=== PATIENT | female | born 1995 | race Caucasian/White ===

== ENCOUNTER 2017-07-09 19:11 | Emergency (ER) | payer SELFPAY ==
[2017-07-09 19:19] VITALS: BP 101/65
[2017-07-09] MEDS ORDERED: Naproxen TAB* 250 MG PO ONE (19:30)
[2017-07-09] MEDS ORDERED: Mupirocin 2% OINT* TUBE TOPICAL ONE (19:30)
[2017-07-09] MEDS ORDERED: HYDROcodone/ACETAMIN 5-325 MG* 1 TAB PO ONE (19:30)
--- NOTE | 2017-07-09 19:43 | UC ---
HPI BURN - HPI Summary HPI Summary: While working in kitchen [place] splashed hot oil onto L arm and L leg. Pt applied egg yolk, hemorrhoid cream to cohn. - History of Current Complaint Chief Complaint: UCBurn Stated Complaint: BURNED,HOT OIL,ARM,LEG Time Seen by Provider: 07/09/17 19:19 Hx Obtained From: Patient Hx Last Menstrual Period: 06/24/17 Occurred: Minutes Ago Length of Exposure: Seconds Onset Severity: Moderate Current Severity: Moderate Location: LUE, LLE Character: Direct Thermal Contact, Blisters: Intact Alleviating: Cool Soaks Associated Signs & Symptoms: Positive: Negative Occupational Injury: Yes - Allergy/Home Medications Allergies/Adverse Reactions: Allergies Allergy/AdvReac Type Severity Reaction Status Date / Time No Known Allergies Allergy Verified 07/09/17 19:19 PMH/Surg Hx/FS Hx/Imm Hx Previously Healthy: Yes - Surgical History Surgery Procedure, Year, and Place: Tonsils, [place] teeth - Family History Known Family History: Positive: Hypertension - Social History Occupation: Employed Full-time Alcohol Use: Occasionally Substance Use Type: None Smoking Status (MU): Never Smoked Tobacco Review of Systems Constitutional: Negative Skin: Other - cohn to L arm and L leg Eyes: Negative ENT: Negative Respiratory: Negative Cardiovascular: Negative Gastrointestinal: Negative Genitourinary: Negative Motor: Negative Neurovascular: Negative Musculoskeletal: Negative Neurological: Negative Psychological: Negative All Other Systems Reviewed And Are Negative: Yes Physical Exam Triage Information Reviewed: Yes Appearance: Well-Appearing, No Pain Distress, Well-Nourished Vital Signs: Initial Vital Signs Temp 97.8 F 07/09/17 19:15 Pulse 74 07/09/17 19:15 Resp 16 07/09/17 19:15 BP 101/65 07/09/17 19:15 Pulse Ox 100 07/09/17 19:15 Vital Signs Reviewed: Yes Eye Exam: Normal, Other - PERRL Eyes: Positive: Conjunctiva Clear ENT Exam: Normal ENT: Positive: Normal ENT inspection, Hearing grossly normal, Pharynx normal, TMs normal Neck exam: Normal Respiratory Exam: Normal Respiratory: Positive: Chest non-tender, Lungs clear, Normal breath sounds, No respiratory distress, No accessory muscle use Cardiovascular Exam: Normal Cardiovascular: Positive: RRR, No Murmur Musculoskeletal Exam: Normal Musculoskeletal: Positive: Strength Intact, ROM Intact, No Edema Neurological Exam: Normal Psychological Exam: Normal Skin Exam: Other - 12cm x 7cm area of redness with 3 small blisters in the middle on L wrist extending onto thumb. L thigh has several round/oval raised red areas: 3cm x 2cm, 2cm x 1.5cm, 4-5 lesions 1cm or less Burn Calculation - [place] Formula for Fluid Resuscitation Weight: 110 lb 24 -Hour Fluid Replacement: 0.0 Course/Dx Burn - Diagnoses Clinic Provider Diagnoses: Superficial cohn on L wrist and L thigh Discharge - Discharge Plan Condition: Stable Disposition: HOME Prescriptions: Mupirocin 2% OINT* [Bactroban 2 % Oint*] 1 applic TOPICAL BID #1 tube Patient Education Materials: Superficial Burn (ED) Referrals: Gabo Car MD [Primary Care Provider] - Additional Instructions: Take 600mg three times per day for pain and use cool soaks (not ice). Change the dressing on your wrist twice daily, and as needed if it gets soiled or dirty. You only need to put a dressing on your leg if the wounds open or drain. See your primary care office in 3-4 days for a recheck. If you have new or concerning symptoms, please return here.
== END 2017-07-09 19:50 | disposition home or self-care (01) ==
LOC: UCEAST 19:11
DX: T23.272A Burn of second degree of left wrist, initial encounter (principal); T24.212A Burn of second degree of left thigh, initial encounter; X10.2XXA Contact with fats and cooking oils, initial encounter; Y93.G3 Activity, cooking and baking; Y92.9 Unspecified place or not applicable; Y99.0 Civilian activity done for income or pay
CPT/HCPCS: 16020; 99213; A9270-GY; G0463